=== PATIENT | female | born 1980 | race Caucasian/White ===

== ENCOUNTER 2018-04-11 17:53 | Emergency (ER) | payer BC, SELFPAY ==
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
[2018-04-11 18:05] VITALS: BP 137/80; PULSE 75; RESP 16; TEMP 37.2; O2SAT 100
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
== END 2018-04-11 19:20 | disposition home or self-care (01) ==
LOC: ER 19:25
PROVIDERS: Emergency Provider Emergency Medicine; PCP Nurse Practitioner Family
DX: S16.1XXA Strain of muscle, fascia and tendon at neck level, initial encounter (principal); V40.5XXA Car driver injured in collision with pedestrian or animal in traffic accident, initial encounter; V43.52XA Car driver injured in collision with other type car in traffic accident, initial encounter
CPT/HCPCS: 99283; 72040

== ENCOUNTER 2018-11-10 14:16 | Outpatient (CLI) | payer BC, SELFPAY ==
[2018-11-10 21:13] LABS: Calculated LDL 47 mg/dL; Cholesterol 141 mg/dL (50-200); HDL Cholesterol 89 mg/dL (40-60); Triglyceride 26 mg/dL (30-150)
== END 2018-11-10 14:36 ==
PROVIDERS: PCP Nurse Practitioner Family; Visit Provider Nurse Practitioner Family
DX: Z13.220 Encounter for screening for lipoid disorders (principal)
CPT/HCPCS: 36415; 80061; 83721

== ENCOUNTER 2019-06-22 15:44 | Outpatient (REF) | payer BC, SELFPAY ==
[2019-06-26 14:24] LABS: Chlamydia Result Negative (Negative); GC Result Negative (Negative)
== END 2019-06-22 16:04 ==
LOC: LBN 15:44
PROVIDERS: PCP Nurse Practitioner Family; Visit Provider Nurse Practitioner Adult Health
DX: N89.8 Other specified noninflammatory disorders of vagina (principal); Z11.3 Encounter for screening for infections with a predominantly sexual mode of transmission
CPT/HCPCS: 87491; 87591; 87480; 87510; 87660

== ENCOUNTER 2019-07-14 14:17 | Outpatient (CLI) | payer BC, SELFPAY ==
[2019-07-14 14:46] LABS: HCT 37.5 % (36.0-46.0); HGB 12.4 g/dL (12.0-15.5); Mean Corp. HGB Concentration 33.1 g/dL (32.0-36.0); Mean Corpuscular Hemoglobin 30.6 pg (27.0-33.0); Mean Corpuscular Volume 92.6 fL (80-95); Platelet Count 314 x1000/uL (130-400); RBC 4.05 m/cumm (4.00-5.20); RBC Distribution Width 12.5 % (11.7-14.6); White Blood Cell Count 4.81 k/cumm (4.4-10.8)
[2019-07-14 15:19] LABS: Iron 90 ug/dL (50-170); Total Iron Binding Capacity 318 ug/dL (250-450)
[2019-07-14 15:46] LABS: Folate 16.1 ng/mL (8.6-20.0); TSH (W/Ref FT4) 1.12 uIU/mL (0.36-3.74); Vitamin B12 296 pg/mL (193-986)
== END 2019-07-14 14:37 ==
PROVIDERS: PCP Nurse Practitioner Adult Health; Visit Provider Obstetrics & Gynecology
DX: R53.83 Other fatigue (principal)
CPT/HCPCS: 36415; 85027; 82607; 82746; 83540; 83550; 84443

== ENCOUNTER 2019-12-15 02:38 | Outpatient (CLI) | payer BC, SELFPAY ==
--- NOTE | 2019-12-15 06:45 | DI.US_ITS ---
EXAM: US PELVIS TRANSVAGINAL CLINICAL HISTORY: RLQ PAIN,OVARIAN PAIN,?MASS,CYST OR FIBROID,R10.31 TECHNIQUE: Transabdominal and transvaginal imaging was performed using standard protocol. COMPARISON: No exams were available for comparison FINDINGS: KIDNEYS: Kidneys are symmetric in size. No evidence of renal calculi. No evidence of hydronephrosis. No renal mass or cyst identified. UTERUS: Anteverted. 9.0 x 4.1 x 4.9 cm. Endometrium: 12 millimeters in thickness. Homogeneous. Myometrium: Unremarkable. No fibroids. Cervix: Unremarkable. OVARIES: Right: Cyst or mass: 2.6 centimeter cyst versus dominant follicle. Left: Cyst or mass: None. DOPPLER: Color: Symmetric and uniform flow to both ovaries. No hyperemia. Duplex: Normal ovarian arterial waveforms visualized. CUL-DE-SAC: Free fluid: None. IMPRESSION: 1. Normal-appearing uterus with endometrial stripe within normal limits. 2. 2.6 centimeter right ovarian cyst. DATA REPOSITORY:
== END 2019-12-15 02:58 ==
PROVIDERS: PCP Nurse Practitioner Adult Health; Visit Provider Nurse Practitioner Adult Health
DX: N83.201 Unspecified ovarian cyst, right side
CPT/HCPCS: 76830; 76856

== ENCOUNTER 2020-01-15 02:18 | Outpatient (CLI) | payer BC, SELFPAY ==
--- NOTE | 2020-01-15 06:45 | DI.US_ITS ---
EXAM: US PELVIS TRANSVAGINAL CLINICAL HISTORY: DYSFUNCTIONAL UTERINE BLEEDING, OVARIAN CYST, N83.209. TECHNIQUE: Transabdominal and transvaginal pelvic ultrasound was performed using standard protocol. COMPARISON: US US PELVIS TRANSVAGINAL from 12/15/2019 FINDINGS: KIDNEYS: Kidneys are symmetric in size. No evidence of renal calculi. No evidence of hydronephrosis. No renal mass or cyst identified. UTERUS: Position: Anteverted. Size: A 8.5 long by 4.2 AP by 4.1 transverse cm Endometrium: 1.1 cm. Normal for patient's menstrual status. Myometrium: Unremarkable. Cervix: Unremarkable. OVARIES: Right: 3.3 x 1.9 x 2.0 cm Cyst or mass: Small follicular cysts. Left: 2.3 x 1.3 x 1.3 cm Cyst or mass: Small follicular cysts. DOPPLER: Color: Symmetric and uniform flow to both ovaries. No hyperemia. Duplex: Normal ovarian arterial waveforms visualized. CUL-DE-SAC: Free fluid: None. Other: None. IMPRESSION: 1. Normal sonographic appearance of the kidneys. 2. Normal-appearing uterus with endometrial stripe within normal limits. 3. Unremarkable bilateral ovaries. DATA REPOSITORY:
== END 2020-01-15 02:38 ==
PROVIDERS: PCP Nurse Practitioner Adult Health; Visit Provider Obstetrics & Gynecology
DX: N83.02 Follicular cyst of left ovary (principal); N83.01 Follicular cyst of right ovary
CPT/HCPCS: 76830; 76856

== ENCOUNTER 2020-01-15 04:48 | Outpatient (CLI) | payer BC, SELFPAY ==
[2020-01-15 07:43] LABS: Abs Immature Grans 0.01 10^3/uL (0.0-0.06); Absolute Basophil Count 0.04 10^3/uL (0.0-0.2); Absolute Eosinophil Count 0.09 10^3/uL (0.0-0.7); Absolute Lymphocyte Count 1.39 10^3/uL (1.2-3.4); Absolute Monocyte Count 0.33 10^3/uL (0.1-0.8); Absolute Neutrophil Count 2.63 10^3/uL (1.2-6.7); Basophils % 0.9; HCT 39.1 % (36.0-46.0); HGB 12.9 g/dL (11.2-15.7); Immature Grans % 0.2; MCH 30.9 pg (27.0-33.0); MCV 93.5 fL (80-95); MPV 9.5 fL (8.0-11.0); Monocytes % 7.3; Neutrophils % 58.6; Nucleated RBC 0 %; Platelet Count 299 10^3/uL (130-400); RBC 4.18 10^6/uL (3.93-5.22); RDW 12.2 % (11.7-14.6); RDW-SD 42.1 fL; WBC 4.49 10^3/uL (4.4-10.8)
[2020-01-15 08:49] LABS: ALT 11 U/L (14-59); AST 15 U/L (15-37); Alkaline Phosphatase 50 U/L (46-116); Anion Gap 7.2 mmol/L (3-11); BUN 16 mg/dL (7-18); CO2 27.8 mmol/L (21.0-32.0); CREATININE 0.88 mg/dL (0.55-1.02); Calcium 8.8 mg/dL (8.5-10.1); Chloride 105 mmol/L (98-107); Glucose 93 mg/dL (74-106); Potassium 4.1 mmol/L (3.5-5.1); Sodium 140 mmol/L (136-145)
[2020-01-15 18:01] LABS: FSH 4.1 mIU/mL (See Note); LH 3.9 mIU/mL (See Note); Prolactin 14.3 ng/mL (See Table)
== END 2020-01-15 05:08 ==
PROVIDERS: PCP Nurse Practitioner Adult Health; Visit Provider Obstetrics & Gynecology
DX: N93.8 Other specified abnormal uterine and vaginal bleeding (principal)
CPT/HCPCS: 36415; 80053; 83001; 83002; 84146; 85025

== ENCOUNTER 2020-02-26 01:38 | Outpatient (CLI) | payer BC, SELFPAY ==
[2020-02-28 06:29] LABS: Patient Race White; SARS-CoV-2 RNA Undetected (Undetected); SARS-CoV-2 Specimen Source Nasopharynx
== END 2020-02-26 01:58 ==
PROVIDERS: PCP Nurse Practitioner Adult Health; Visit Provider Family Medicine
DX: Z11.59 Encounter for screening for other viral diseases (principal); Z71.84 Encounter for health counseling related to travel
CPT/HCPCS: U0003

== ENCOUNTER 2020-03-22 03:02 | Outpatient (CLI) | payer BC, SELFPAY ==
[2020-03-24 11:27] LABS: SARS-CoV-2 RNA Not Detected (NotDetected); SARS-CoV-2 RNA Source Nasal/Nares
== END 2020-03-22 03:22 ==
PROVIDERS: PCP Nurse Practitioner Adult Health; Visit Provider Surgery
DX: Z11.59 Encounter for screening for other viral diseases (principal); Z01.818 Encounter for other preprocedural examination
CPT/HCPCS: U0003

== ENCOUNTER 2020-03-26 10:14 | Day surgery (SDC) | payer BC, SELFPAY ==
[2020-03-26 10:20] VITALS: BP 112/68; PULSE 51; RESP 16; TEMP 36.6; O2SAT 100
[2020-03-26] MEDS: Lactated Ringers 1,000 ML 80 ML IV (10:50)
--- NOTE | 2020-03-26 12:47 | HPE_ITS ---
Date of service: 03/26/20 Time of Service: 12:48 Assessment and Plan Assessment and plan (1) Abdominal bloating: Status: Acute Assessment and plan: I advised EGD and colonoscopy The procedure was described including the risks of perforation with need for surgery, bleeding, cardiorespiratory issues. The patient agrees to proceed. (2) Change in bowel habits: Status: Acute History of Present Illness Narrative: Complains of digestive issues for 7 years, since she had her son. Seems to have trouble with sugar, yeast. Just started on Metformin by her sausage maker and notes some improvement.. If she eats the wrong thing, will have bloating and pain. She also feels sluggish. Worse over the last year. Pain in lower abdomen but most consistently in the RLQ. Worse the few days prior to her menses. Pelvic US was normal Labs unremarkable although consistent with PCOS Occasional blood in stool from hemorrhoids. No prior PUD. No prior EGD/colonoscopy . When habits are good, can have daily BM but constipation is worsening. Did not have to use laxatives. No heartburn or dysphagia. Did have a time when after eating felt pressure in epigastric region. Review of Systems All systems reviewed & are unremarkable except as noted in HPI and below PFSH Medical History Abdominal bloating Abnormal cervical Papanicolaou smear (07/25/13) 2004 OSMAR; 2005 LEV 1 2006 normal pap 2006, 2010, 2012 neg/neg, 2018 neg/neg DUB (dysfunctional uterine bleeding) Hemorrhoids HPV (human papilloma virus) infection Early Ovarian cyst Pelvic pain Polycystic ovarian syndrome Tobacco use disorder QUIT 05/2006 Surgical History Appendectomy (~1986) Family History Mother Essential hypertension Multiple sclerosis Father Hyperlipidemia Maternal Uncle Personal history of malignant neoplasm colon CA early 50's Grandmother Essential hypertension Social History Smoking/Tobacco Use Status: Former Tobacco Use Quit Date: 05/17/06 Smoking risk assessment performed?: Yes Alcohol Intake: current Alcohol Intake frequency: a few times a month Drug use: Never Substance use type: does not use Caregiver/Support person: No Household members: spouse and children Housing: house Number of Children: 1 Communication Needs: None Education Level: college Do you need help understanding health information?: Never 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 [employer] Pets and animals: No Sexually active: Yes Do you think of yourself as: straight/heterosexual Current gender identity: female Other: had a vasectomy What is your relationship status?: How often do you talk on the phone with friends or family?: three or more times per week How often do you get together with friends or relatives?: once per week How often do you attend lutheran or latter day services?: decline to answer Do you belong to any clubs or organized social groups?: decline to answer Panel score (0-1 are the most socially isolated patients): 2 What type of physical activity do you participate in: weight lifting, running and yoga Duration: 30-45 minutes/day Frequency: daily Special naz needs: No Seatbelt use: always Drive intox or ride w/intox pick up driver: No Water heater temp set <120 deg: Yes Working smoke detector in home: Yes Fire extinguisher in home: Yes Carbon monox detector in home: Yes Firearms in home: Yes Firearms unloaded and locked: Yes Do you feel safe at home: Yes Do you feel safe in your relationship?: Yes Female Reproductive History Menstrual control method: permanent sterilization Meds Home Medications and Allergies Home Medications Medication Instructions Recorded Confirmed Type Probiotic 1 ea PO DAILY cap.sprink 09/02/16 03/26/20 History magnesium oxide 400 mg PO BID 09/02/16 03/26/20 History albuterol sulfate [Proventil HFA] 1 - 2 puff INHALATION Q4H PRN #1 09/15/17 03/26/20 Rx inhaler cholecalciferol (vitamin D3) 25 1,000 unit PO DAILY 06/22/19 03/26/20 History mcg (1,000 unit) capsule acetylcysteine 600 mg capsule 600 mg PO BID cap 01/04/20 03/26/20 History metformin 500 mg tablet 500 mg PO BID #90 tab 01/18/20 03/26/20 Rx Allergies Allergy/AdvReac Type Severity Reaction Status Date / Time No Known Drug Allergies Allergy Verified 02/05/20 15:54 Exam Narrative Exam Narrative: Alert Lungs CTA Heart RRR Results Last Vital Signs Temp 97.9 F 03/26/20 10:20 Pulse 51 L 03/26/20 10:20 Resp 16 03/26/20 10:20 BP 112/68 03/26/20 10:20 Pulse Ox 100 03/26/20 10:20 COVID-19 Screening Have you,or household,traveled outside [place] in last 14 days?: No Had IN PERSON contact w/suspected or confirmed C-19 person: No
--- NOTE | 2020-03-26 12:55 | W.PM.DSUDISC ---
Discharge Plan Disposition Patient Disposition: HOME Condition: Good Discharge Details Reason For Visit: EGD, Colonoscopy Attending Provider: Dorys Abrams Primary Care Provider: Simona Peter Home Meds and New Rx's Prescriptions: New omeprazole 20 mg capsule,delayed release(DR/EC) 20 mg PO DAILY Qty: 60 RF: 0 Continued cholecalciferol (vitamin D3) 25 mcg (1,000 unit) capsule 1,000 unit PO DAILY RF: 0 acetylcysteine [NAC] 600 mg capsule 600 mg PO BID RF: 0 metformin [Glucophage] 500 mg tablet 500 mg PO BID Qty: 90 RF: 1 magnesium oxide 400 MG tablet 400 mg PO BID RF: 0 Probiotic 1 EACH capsule, sprinkle 1 ea PO DAILY RF: 0 albuterol sulfate [Proventil HFA] 6.7 GM HFA aerosol inhaler 1 - 2 puff Inhalation Q4H PRN Qty: 1 RF: 0 Discharge Instructions Additional Instructions: Findings: Your EGD showed two shallow ulcers. Routine biopsies were done. Take the antacid for two months. Avoid ibuprofen, aspirin, alcohol. The colonoscopy was normal. Please call if you develop: fevers >101.5 Nausea or Vomiting Abdominal pain that is not transient DAY SURGERY UNIT POST EGD/COLONOSCOPY INSTRUCTIONS 1. Because there will be medication in your system for the next 24 hours, you may feel a little sleepy. Your coordination will be affected. Therefore: a. Do not drive or operate dangerous equipment for 24 hours. b. Do not drink alcohol beverages for 24 hours (not even beer). c. Plan to go home and rest for the day. 2. Generally there are no restrictions on your activity after a day or so has gone by, but you may feel a bit fatigued for a few days. 3 After you arrive home you may have a light meal and return to a normal diet as you can tolerate it without feeling sick to your stomach. 4. After surgery, you may feel pain or discomfort. This should be only transient, but if it persists please contact your doctor. 5. If there are any questions regarding the findings of your procedure, please feel free to contact your doctor. 6. If you are unable to contact your doctor with a problem, contact the hospital at [phone]. 7. Continue all your regular medications unless directed otherwise. I understand the above instructions and have no questions. Signature of Patient or Responsible Adult Escort Date/Time Name of Responsible Adult Escort Signature of Nurse Date/Time Activity:: Activity as Tolerated Diet:: As Tolerated Discharge Orders Discharge Orders: Discharge Order (Routine); Ordered 03/26/20 Ordered By: Dorys Abrams DS: Diagnosis Discharge Diagnosis (1) Abdominal bloating: Status: Acute (2) Change in bowel habits: Status: Acute (3) Gastric ulcer: Status: Acute
--- NOTE | 2020-03-26 12:56 | W.COLOREPORT ---
Colonoscopy Report Date of procedure: 03/26/20 Pre-op diagnosis general: Abdominal pain, change in bowel habits Post-op diagnosis procedure note: other (Shallow gastric ulcers, normal colon) Procedure: EGD with biopsies Colonoscopy Surgeon: Dorys Abrams Anesthesia proc note operative: MAC Indications: This 39 year old woman complains of worsening constipation. She also has RLQ pain and occasional epigastric pain. Symptoms are also associated with bloating. Procedure Description: The patient was placed in the left lateral position and propofol titrated to sedation. The endoscope was advanced into the esophagus under direct visualization. The scope was passed through the stomach and into the duodenum. There was no duodenitis or ulceration noted. Biopsies were taken from the second portion of the duodenum to evaluate for celiac disease. The stomach showed two chronic shallow ulcers in the antrum. Biopsies taken from the periphery. The stomach was otherwise normal including on retroflexed view of the fundus and lesser curvature. The GE junction was inspected and showed no significant stricture, inflammation, masses or Barretts. The scope was slowly withdrawn with no other esophageal lesions found. Digital rectal examination revealed no abnormalities. The scope was advanced to the cecum without difficulty. The ileocecal valve and appendiceal orifice were clearly identified. The prep was good. The scope was slowly withdrawn over the course of greater than 6 minutes with no abnormalities seen in the ascending, transverse, descending, sigmoid colon or rectum including on retroflexed view. The colon was noted to be slightly tortuous. The patient tolerated the procedure well and was stable to recovery. Will treat with omeprazole for two months.
--- NOTE | 2020-03-26 13:15 | STOM_PTH ---
PATIENT: Letha Sandoval LOC: [facility] U#:[id number] AGE/SX: 39/F ROOM: RE03/26/[address]: Dorys Abrams MD : 1980 BED: DIS: 03/26/2020 SPEC #: [id number] RECD: 03/26/20 17:18 STATUS: [facility] REQ #: [id number] LORA: 03/26/20 13:[address]: Dorys Abrams DEPT: Surgical Specimen RECD BY: Keira Granda ENTERED: 03/26/20 17:18 SP TYPE: STOMACH OTHR DR: Simona Peter APRN Tissues: 1 - BIOPSY BOWEL 2 - STOMACH BIOPSY Procedures: GROSS AND MICRO LEVEL 4 Comments: [id number] ([id number] [facility] [place]
[2020-03-26 14:15] VITALS: BP 112/77; PULSE 58; RESP 16; TEMP 36.3; O2SAT 100
== END 2020-03-26 14:34 | disposition home or self-care (01) ==
PROVIDERS: PCP Nurse Practitioner Adult Health; Visit Provider Surgery
PROC: (CPT 43239; principal; 2020-03-26 11:45)
DX: R19.4 Change in bowel habit (principal); R14.0 Abdominal distension (gaseous); K25.9 Gastric ulcer, unspecified as acute or chronic, without hemorrhage or perforation; K31.89 Other diseases of stomach and duodenum
CPT/HCPCS: 43239; 45378; 81025; 88305; NC; J2704

== ENCOUNTER 2020-06-10 02:39 | Outpatient (CLI) | payer BC, SELFPAY ==
[2020-06-05] MEDS: Omnipaque 350 MG/ML 50 ML BTL IJ (08:12)
[2020-06-05] MEDS: Breeza Beverage 473 ML BTL PO ×2 (08:13)
[2020-06-05 08:34] LABS: Anion Gap 5.9 mmol/L (3-11); BUN 17 mg/dL (7-18); CO2 27.1 mmol/L (21.0-32.0); CREATININE 0.87 mg/dL (0.55-1.02); Calcium 8.9 mg/dL (8.5-10.1); Chloride 106 mmol/L (98-107); Glucose 92 mg/dL (74-106); Potassium 4.1 mmol/L (3.5-5.1); Sodium 139 mmol/L (136-145); TSH (W/Ref FT4) 1.72 uIU/mL (0.36-3.74)
[2020-06-05 08:35] LABS: C-Reactive Protein < 0.05 mg/dL (0.0-0.3)
[2020-06-05 08:38] LABS: Hemoglobin A1C 5.2 % (<5.7)
[2020-06-05] MEDS: Omnipaque 350 MG/ML 100 ML BTL IJ (09:33)
[2020-06-05] MEDS: Normal Saline - Diluent 50 ML VIAL IV (09:34)
--- NOTE | 2020-06-05 09:35 | DI.CT_ITS ---
EXAM: CT ABDOMEN PELVIS W CLINICAL HISTORY: RLQ/GROIN PAIN/hernias/s/p open,R10.30 TECHNIQUE: Imaging Protocol: Axial computed tomography images with coronal and sagittal reformatted images were created and reviewed CONTRAST MATERIAL: Intravenous: Omnipaque 350 Contrast volume:100 mL Oral: Yes COMPARISON: CT CHEST FOR PULMONARY EMBOLUS from 09/20/2017 FINDINGS: ABDOMEN: Lung Bases: Normal where visualized. Liver: Normal density. No measurable mass. Portal, Superior Mesenteric, and Splenic Veins: Unremarkable. Gallbladder and Biliary Tract: No radiodense calculus or dilation. Pancreas: Normal density, no abnormal calcifications or inflammatory process. Spleen: Normal. Adrenals: No masses seen. Kidneys: Normal size, contour and axis. No radiodense stones or obstructive uropathy. No masses seen. Abdominal Aorta: Abdominal portion non-dilated. Mild atherosclerosis. Bowel: No obstruction or bowel wall thickening. No evidence of appendicitis. There is a large amount of stool throughout the colon. Peritoneal Cavity: No ascites, collection or mesenteric inflammatory response. No free air. Lymph Nodes: Within normal limits. Bones: Unremarkable. Soft Tissues: Unremarkable. No evidence of an inguinal hernia. PELVIS: Bladder: Symmetric distention, no gross wall thickening. Reproductive Organs: Unremarkable as visualized. Lymph Nodes: Within normal limits. Bones: Within normal limits. IMPRESSION: 1. No evidence of an inguinal hernia. 2. No acute abdominal or pelvic process. 3. Large amount of stool throughout the colon. RADIATION DOSE DELIVERED: 586.23mGy.cm Total DLP DATA REPOSITORY: All CT scans at this facility are submitted to the National Radiology Data Registry (NRDR) Dose Index Registry (DIR) with the [employer] (ACR). RADIATION OPTIMIZATION: All CT scans at this facility use at least one of these dose optimization te chniques: automated exposure control; mA and/or kV adjustment per patient size (includes targeted exa ms where dose is matched to clinical indication); or iterative reconstruction.
--- NOTE | 2020-06-10 | DI.CT_ITS ---
EXAM: CT LUMBAR SPINE RECONS CLINICAL HISTORY: LUMBAR RECONSTRUCTIONS PER DR TO VIEW LUMBAR VERTEBRAE. TECHNIQUE: Imaging Protocol: Axial computed tomography images with coronal and sagittal reformatted images were created and reviewed. Images of the spine were reconstructed from the abdomen and pelvic CT. CONTRAST MATERIAL: Intravenous: Omnipaque 350 Contrast volume:100 cc Oral: / no COMPARISON: CT CHEST FOR PULMONARY EMBOLUS from 09/20/[address] ABDOMEN PELVIS W from 06/05/2020 FINDINGS: Bones: The last intervertebral disc space is designated the L5/S1 level for the numbering purpose of this examination. The vertebral body heights are well maintained. Alignment is satisfactory. No frac ture is seen. There is no spondylolysis or spondylolisthesis. T12-L1: No disc herniations or bulges are present. L1-2: No disc herniations or bulges are present. L2-3: No disc herniations or bulges are present. L3-4: No disc herniations or bulges are present. L4-5: No disc herniations or bulges are present. L5-S1: Mild narrowing of the disc space. Minimal endplate osteophytes. Mild disc bulging. No disc he rniation is visible. Mild bilateral neural foraminal narrowing is present. There is no central canal stenosis at any level.. Soft Tissues: The visualized SI joints and sacrum are will maintained. The paraspinal soft tissues a re unremarkable. IMPRESSION: Mild degenerative disc changes at L5-S1 with small endplate osteophytes causing mild bilateral neural foraminal encroachment. No disc herniation is visible. RADIATION DOSE DELIVERED: Total DLP DATA REPOSITORY: All CT scans at this facility are submitted to the National Radiology Data Registry (NRDR) Dose Index Registry (DIR) with the [employer] ([employer]). RADIATION OPTIMIZATION: All CT scans at this facility use at least one of these dose optimization te chniques: automated exposure control; mA and/or kV adjustment per patient size (includes targeted exa ms where dose is matched to clinical indication); or iterative reconstruction.
== END 2020-06-10 02:59 ==
PROVIDERS: PCP Nurse Practitioner Adult Health; Visit Provider Surgery
DX: R10.30 Lower abdominal pain, unspecified (principal); K58.9 Irritable bowel syndrome, unspecified
CPT/HCPCS: 80048; 74177; 83036; 84443; 86140; J3490; Q9967

== ENCOUNTER 2020-09-10 09:51 | Outpatient (CLI) | payer BC, SELFPAY ==
--- NOTE | 2020-09-10 11:39 | DI.RAD_ITS ---
EXAM: XR HAND RT COMPLETE CLINICAL HISTORY: right hand pain, M79.641. TECHNIQUE: 2D digital imaging was performed. COMPARISON: No exams were available for comparison FINDINGS: BONES: There is an oblique mildly displaced fracture involving the distal diaphysis of the 5th metaca rpal. The fracture does not extend into the MCP joint. No bony destructive lesion is seen. JOINTS: No dislocation present. SOFT TISSUE: Soft tissue swelling adjacent to the 5th metacarpal. IMPRESSION: Mildly displaced fracture involving the right 5th metacarpal. DATA REPOSITORY: RADIATION DOSE DELIVERED:
== END 2020-09-10 10:11 ==
PROVIDERS: PCP Nurse Practitioner Adult Health; Visit Provider Internal Medicine
DX: M79.641 Pain in right hand (principal); S62.316A Displaced fracture of base of fifth metacarpal bone, right hand, initial encounter for closed fracture
CPT/HCPCS: 73130

== ENCOUNTER 2023-03-11 18:20 | Outpatient (REF) | payer BC, SELFPAY ==
--- NOTE | 2023-03-11 16:30 | PAPFT_PTH ---
PATIENT: Letha Sandoval LOC: [facility] U#:[id number] AGE/SX: 42/F ROOM: RE03/11/[address]: Simona Peter APRN : 1980 BED: DIS: 03/11/2023 SPEC #: [id number] RECD: 03/11/23 18:24 STATUS: ELIZABETH REOmar #: [id number] LORA: 03/11/23 16:[address]: Simona Peter DEPT: [facility] Cytology RECD BY: Keira Granda Tissues: 1 - CX/ENDOCX FOR PAP SMEARS Procedures: PAP THIN PREP/UVM Screening HPV DNA PROBE Comments: [id number]
[2023-03-13 13:48] LABS: Chlamydia Result Negative (Negative); GC Result Negative (Negative)
== END 2023-03-11 18:21 | disposition home or self-care (01) ==
LOC: LBN 18:20
PROVIDERS: PCP Nurse Practitioner Adult Health; Visit Provider Nurse Practitioner Adult Health
DX: Z11.3 Encounter for screening for infections with a predominantly sexual mode of transmission (principal); Z12.4 Encounter for screening for malignant neoplasm of cervix; Z11.51 Encounter for screening for human papillomavirus (HPV)
CPT/HCPCS: 87491; 87591; 88142; 87480; 87510; 87624; 87660

== ENCOUNTER 2024-05-01 01:20 | Outpatient (CLI) | payer BC, SELFPAY ==
--- NOTE | 2024-05-01 10:28 | DI.RAD_ITS ---
Exam(s) XR LUMBAR SPINE COMPLETE EXAM: XR LUMBAR SPINE COMPLETE CLINICAL HISTORY: assess bony alignment,lumbar pain with radiation down both legs, m54.50,. TECHNIQUE: 2D digital imaging was performed of the lumbar spine. Five images were obtained. AP, la teral, right oblique, left oblique and L5-S1 spot views were obtained. COMPARISON: CT CT LUMBAR SPINE RECONS from 06/05/2020 FINDINGS: BONES: No fracture or destructive lesion. Vertebral bodies are unremarkable. No facet hypertrophy shani ntified. DISKS: Intervertebral disc spaces are maintained. ALIGNMENT: Lumbar spinal alignment is within normal limits. No spondylolysis or spondylolisthesis. SOFT TISSUE: Normal. IMPRESSION: Unremarkable radiographs of the lumbar spine. DATA REPOSITORY: RADIATION DOSE DELIVERED:
== END 2024-05-01 01:40 ==
LOC: DI 01:21
PROVIDERS: PCP Nurse Practitioner Adult Health; Visit Provider Nurse Practitioner Adult Health
DX: M54.50 Low back pain, unspecified (principal); M79.604 Pain in right leg; M79.605 Pain in left leg
CPT/HCPCS: 72110

== ENCOUNTER 2024-07-17 01:19 | Outpatient (CLI) | payer BC, SELFPAY ==
--- NOTE | 2024-07-17 07:00 | DI.RAD_ITS ---
Exam(s) XR HIP RT COMPLETE AP PELVIS EXAM: XR HIP RT COMPLETE AP PELVIS CLINICAL HISTORY: assess bones, alignmentlumbar ddd,radiculopathy,bilat hip pain,m51.369. TECHNIQUE: 2D digital imaging was performed. Two views COMPARISON: No exams were available for comparison FINDINGS: BONES: No acute fracture is present. No bony destructive lesion is seen. JOINTS: No dislocation present. The hip joint spaces are maintained. No significant degenerative c hanges. The SI joints and pubic symphysis are unremarkable. SOFT TISSUE: Normal. IMPRESSION: No acute abnormality. DATA REPOSITORY: RADIATION DOSE DELIVERED:
--- NOTE | 2024-07-17 11:20 | DI.MRI_ITS ---
Exam(s) MR LUMBAR SPINE WO EXAM: MR LUMBAR SPINE WO CLINICAL HISTORY: L5-S1 w sm endplate osteophytes neural michael encrm,lumbar ddd,radiculopathy. TECHNIQUE: Multiplanar multisequence MRI of the Lumbar spine was performed. COMPARISON: CT CT LUMBAR SPINE RECONS from 06/05/2020 CR XR LUMBAR SPINE COMPLETE from 05/01/2024 FINDINGS: Conus medullaris is at normal level. There is no evidence of conus mass nor subjacent clumping of in trathecal nerve roots to suggest arachnoiditis. The distal thecal sac appears unremarkable.There is no evidence of Tarlov intrasacral cysts nor other significant findings within the sacral canal Bones:There are no fractures nor ominous osseous lesions in the lumbar vertebral bodies and visualize d sacrum. No pars defects. With respect to the individual levels... T12-L1: Unremarkable L1-2: Normal disc height and signal. No disc herniation nor central canal stenosis.No foraminal steno sis L2-3: Normal disc height. No disc herniation nor central canal stenosis.No foraminal stenosis.No face t arthropathy. L3-4: Normal disc height. No disc herniation or central canal stenosis.No foraminal stenosis.No face t arthropathy. L4-5: Normal disc height and signal. No significant disc herniation nor central spinal canal stenosi s. No facet arthropathy. No foraminal stenosis. L5-S1: There is moderate disc space narrowing at this level and there are mild Modic type 2 sub endpl ate fatty marrow changes on the right side of this disc space. There is mild retrolisthesis of L5 up on S1. There is posterior annular bulging which contacts the anterior thecal sac. Central canal dim ensions are lower normal. Annular bulging extends into the floor of both exiting neural foraminae. There is mild-moderate right-sided foraminal stenosis at this level. Mild foraminal stenosis on the left side. The amount of disc space narrowing is slightly more prominent on the right than the left side at this level. Soft tissues: paraspinal soft tissues appear unremarkable. IMPRESSION: 1. Main findings here are at the L5-S1 level where there is moderate disc space narrowing, slightly m ore so on the right side than the left side of the disc space and there are Modic type 2 sub endplate fatty marrow changes on the far right side of this disc space. There is mild retrolisthesis L5 upon S1 with relatively symmetrical annular bulging extending into the floors of both exiting neural fora an. There is mild-moderate right-sided foraminal stenosis at this level. There is milder left-blessing ed foraminal stenosis at this level. 2. All of the other disc levels appear unremarkable 3. There is no significant facet arthropathy in the lumbar spine. DATA REPOSITORY:
== END 2024-07-17 01:39 ==
LOC: DI 01:19
PROVIDERS: PCP Nurse Practitioner Adult Health; Visit Provider Nurse Practitioner Adult Health
DX: M51.361 Other intervertebral disc degeneration, lumbar region with lower extremity pain only (principal); M25.551 Pain in right hip
CPT/HCPCS: 72148; 73502

== ENCOUNTER 2024-09-15 10:09 | Outpatient (CLI) | payer BC, SELFPAY ==
[2024-09-15 13:08] LABS: Abs Immature Grans 0.02 10^3/uL (0.0-0.06); Absolute Basophil Count 0.07 10^3/uL (0.0-0.2); Absolute Eosinophil Count 0.08 10^3/uL (0.0-0.7); Absolute Monocyte Count 0.42 10^3/uL (0.1-0.8); Absolute Neutrophil Count 4.77 10^3/uL (1.2-6.7); Eosinophils % 1.1 %; HCT 34.9 % (36.0-46.0); HGB 11.4 g/dL (11.2-15.7); Immature Grans % 0.3 %; Lymphocytes % 25.1 %; MCHC 32.7 % (32.0-36.0); MCV 89 fL (80-95); MPV 9.5 fL (8.0-11.0); Monocytes % 5.9 %; Neutrophils % 66.6 %; Platelet Count 373 10^3/uL (130-400); RBC 3.93 10^6/uL (3.93-5.22); RDW 13.4 % (11.7-14.6); RDW-SD 44.2 fL; WBC 7.16 10^3/uL (4.4-10.8)
[2024-09-15 14:26] LABS: Iron 57 ug/dL (50-170); Total Iron Binding Capacity 301 ug/dL (250-450); Transferrin Sat 19 % (15-50)
[2024-09-15 14:54] LABS: ALT 21 U/L (14-59); AST 19 U/L (15-37); Alkaline Phosphatase 44 U/L (46-116); Anion Gap 9.6 mmol/L (3-11); BUN 19 mg/dL (7-18); Bilirubin, Total 0.6 mg/dL (0.2-1.0); CO2 29.4 mmol/L (21.0-32.0); CREATININE 0.8 mg/dL (0.55-1.02); Calcium 9.3 mg/dL (8.5-10.1); Chloride 102 mmol/L (98-107); Estimated GFR 93.12 (mL/min/1.73m2); Ferritin 19 ng/mL (8-252); Glucose 83 mg/dL (74-106); Sodium 141 mmol/L (136-145); TSH (W/Ref FT4) 1.17 uIU/mL (0.36-3.74); Total Protein 7.4 g/dL (6.4-8.2); Vitamin B12 449 pg/mL (193-986)
[2024-09-15 14:55] LABS: Folate > 20.0 ng/mL (8.6-20.0)
[2024-09-18 11:37] LABS: Transferrin 236 mg/dL (201-352)
== END 2024-09-15 10:10 | disposition home or self-care (01) ==
PROVIDERS: PCP Nurse Practitioner Adult Health; Visit Provider Nurse Practitioner Adult Health
DX: N92.0 Excessive and frequent menstruation with regular cycle (principal)
CPT/HCPCS: 36415; 80053; 82607; 82728; 82746; 83540; 83550; 84443; 84466; 85025

== ENCOUNTER 2024-12-05 02:59 | Outpatient (CLI) | payer BC, SELFPAY ==
[2024-12-05 10:20] LABS: Abs Immature Grans 0.01 10^3/uL (0.0-0.06); HCT 36.8 % (36.0-46.0); HGB 12.1 g/dL (11.2-15.7); Immature Grans % 0.2 %; MCH 28.9 pg (27.0-33.0); MCHC 32.9 % (32.0-36.0); MCV 88 fL (80-95); MPV 9.4 fL (8.0-11.0); Platelet Count 356 10^3/uL (130-400); RBC 4.19 10^6/uL (3.93-5.22); RDW 13.7 % (11.7-14.6); RDW-SD 44.2 fL; WBC 4.50 10^3/uL (4.4-10.8)
== END 2024-12-05 03:00 | disposition home or self-care (01) ==
LOC: LBO 03:00
PROVIDERS: PCP Nurse Practitioner Adult Health; Visit Provider Obstetrics & Gynecology
DX: Z01.818 Encounter for other preprocedural examination (principal)
CPT/HCPCS: 36415; 86850; 86900; 86901; 85025

== ENCOUNTER 2024-12-06 06:16 | Day surgery (SDC) | payer BC, SELFPAY ==
[2024-12-06 06:37] VITALS: BP 109/70; PULSE 66; RESP 16; TEMP 36.7; O2SAT 100
--- NOTE | 2024-12-06 07:09 | W.ANESPRE ---
General Info Date of Service Date Performed: 12/06/24 Height: 5 ft 5 in Weight: 69.5 kg Body Mass Index (BMI): 25.4 Surgical Procedure: Operation Date: 12/06/24 07:40 Proposed Procedure Side Surgeon p Dilation & Curettage with Hysteroscopy, Dani Gupta, Actual Procedure Side Surgeon p Dilation & Curettage with Hysteroscopy, Dani Gupta, Pre-Op Diagnosis Post-Op Diagnosis Abnormal uterine bleeding Meds Allergies and Home Medications Allergies Allergy/AdvReac Type Severity Reaction Status Date / Time No Known Allergies Allergy Verified 12/06/24 06:51 Home Medication ?Medication ?Instructions ?Recorded magnesium oxide 400 mg (241.3 mg 400 mg PO BID 09/02/16 magnesium) tablet acetylcysteine 600 mg capsule (NAC) 600 mg PO BID 01/04/20 albuterol sulfate 90 mcg/actuation 1 - 2 puff inhalation Q4H PRN ##1 05/21/22 aerosol inhaler (Proventil HFA) metformin 500 mg tablet See Rx Instructions .Route 05/18/24 .COMPLEX #180 tabs celecoxib 200 mg capsule 200 mg PO BID Lower back pain 08/22/24 Current Visit Medications: Current Medications Generic Name Dose Route Start Last Admin Trade Name Freq PRN Reason Stop Dose Admin Ringer's Solution 1,000 mls @ 125 mls/hr 12/06/24 06:00 IV 12/06/24 23:59 INFUSION HIRA IV Miscellaneous Supplies 1 each 12/06/24 06:00 Iv Access IV 12/06/24 23:59 DIRECTED HIRA Sodium Chloride 0 ml 12/06/24 06:00 Normal Saline Flush 10 Ml Syr IV 12/06/24 23:59 PRN PRN Sodium Chloride 0 ml 12/06/24 06:00 Normal Saline 10 Ml Vial IJ 12/06/24 23:59 DIRECTED PRN Sterile Water 0 ml 12/06/24 06:00 Water,Injection,Sterile 10 Ml Vial IJ 12/06/24 23:59 DIRECTED PRN PFSH Active Problems Active Problems: Problem Status Onset Code Abnormal uterine bleeding Acute N93.9 Right ovarian cyst Acute ~10/2024 N83.201 Endometrial polyp Acute ~10/2024 N84.0 Menorrhagia Acute ~2024 N92.0 Lumbar degenerative disc disease Acute M51.369 Acute ~06/2023 Z63.4 Polycystic ovarian syndrome Chronic E28.2 Medical History Medical History IBS (irritable bowel syndrome) DUB (dysfunctional uterine bleeding) Sinusitis, acute Gastric ulcer (~2019) Fracture of fifth metacarpal bone of right hand Ovarian cyst Abnormal cervical Papanicolaou smear (07/25/13) 2005 SOMAR; 2005 LEV 1 2006 normal pap 2006, 2010, 2012 neg/neg, 2018 neg/neg Hemorrhoids Tobacco use disorder QUIT 05/2006 HPV (human papilloma virus) infection Early Surgical History Surgical History H/O hand surgery (~09/2020) s/p closed reduction and pinning of right fifth metacarpal fx Appendectomy (~1986) Tobacco Smoking/Tobacco Use Status: Former Tobacco Use Passive smoking exposure: No Alcohol Alcohol Intake: current Alcohol intake frequency: a few times a month Substance Use Substance use: Never Substance use type: does not use Vital Signs and Lab Results Vital Signs Most Recent Vital Signs in EMR: Most Recent Vital Signs Temp Pulse Resp BP Pulse Ox 36.7 C 66 16 109/70 100 12/06/24 06:37 12/06/24 06:37 12/06/24 06:37 12/06/24 06:37 12/06/24 06:37 Lab Results Blood Type / Crossmatch: Antibody Screen NEGATIVE 12/05/24 Complete Blood Count: WBC, (4.4-10.8) 4.50 10^3/uL 12/05/24, 10:05 RBC, (3.93-5.22) 4.19 10^6/uL 12/05/24, 10:05 Hgb, (11.2-15.7) 12.1 g/dL 12/05/24, 10:05 Hct, (36.0-46.0) 36.8 % 12/05/24, 10:05 Plt Count, (130-400) 356 10^3/uL 12/05/24, 10:05 Panel: Urine HCG, Qual Negative 12/05/24, 09:31 Anesthesia Assessment and Plan Anesthesia History Personal History: No History of Anesthesia Complications Family History: No Family History of Anesthesia Complications Exercise Tolerance Exercise Tolerance: Metabolic Equivalents>4 Cardiac & Pulmonary Exam Cardiac Exam: Normal S1/S2 Heart Sounds Pulmonary Exam: Clear Bilateral Breath Sounds Implantable Cardiac Device Does patient have a Pacemaker or an ICD?: No Airway Exam Known Difficult Airway: No Mallampati Class: 3 Mouth Opening: Normal (> 3cm) Thyromental Distance: Less than 3 cm Neck Range of Motion: Full ROM Neck Circumference: Normal Teeth Condition: Normal Dentition ASA Classification ASA Score: ASA 2 Emergency Case?: No NPO Status NPO Status: NPO Clears >2 hours, Solids >8 hours Status Status: Negative HCG Anesthesia Plan Resuscitation Status: Full Code Anesthesia Technique: General Anesthesia Airway Planned: Natural Airway Monitors Used: Standard Monitors Preoperative Comments:: 44 yo female for D/C. Sig PMHx: gastric ulcer (Denies issues with reflux. Ulcer found on EGD), LBP/disk dz (back is always sore, goes for injections next week), POS (metformin), former smoker, occ EtOh. Pft: normal Previous Anes: - EGD/colo, ketamine, prop, natural airway, no issues.
[2024-12-06] MEDS: Lactated Ringers 1,000 ML 125 ML IV (07:11)
[2024-12-06 07:14] VITALS: BMI 25.4
--- NOTE | 2024-12-06 10:35 | ENDO_PTH ---
PATIENT: Letha Sandoval LOC: [facility] U#:[id number] AGE/SX: 44/F ROOM: RE12/06/[address]: Nova Gupta DO : 1980 BED: DIS: 12/06/2024 SPEC #: [id number] RECD: 12/06/24 12:40 STATUS: ELIZABETH RE #: [id number] LORA: 12/06/24 10:[address]: Nova Gupta DEPT: Surgical Specimen RECD BY: Keira Granda ENTERED: 12/06/24 12:44 SP TYPE: Endo OTHR DR: Simona Peter APRN Tissues: 1 - ENDOCERVICAL BX/CURRETTE 2 - ENDOMETRIUM BX/CURRETTE 3 - ENDOMETRIUM BX/CURRETTE Procedures: GROSS AND MICRO LEVEL 4 Comments: [id number]
[2024-12-06] MEDS: Silver Nitrate Stick 1 EACH (10:42)
[2024-12-06 10:52] VITALS: BP 115/69; PULSE 43; RESP 14; TEMP 36.2; O2SAT 100
--- NOTE | 2024-12-06 10:55 | ROE_ITS ---
Operative Note Operative Note PRE-OP DIAGNOSIS: abnormal uterine bleeding, endometrial mass POST-OP DIAGNOSIS: same (With endometrial polyp) PROCEDURE: Hysteroscopy with dilation and curettage, MyoSure SURGEON: Nova Gupat ANESTHESIA TYPE: General:No Airway Refer to Anesthesia Record ESTIMATED BLOOD LOSS: 10 PATHOLOGY: other (1. Endometrial polyp 2. Endocervical curettage 3. Endometrial curettage) COMPLICATIONS: None Patient was transported to: same day Patient's condition: stable Indications: Heavy menstrual bleeding, suspect endometrial polyp Findings: Normal-appearing cervix and endometrial canal and cavity. 3 mm polypoid structure at the uterine fundus Procedure Description: After full informed consent was obtained, patient to the in the operating suite with an IV running. She was placed in the supine position and general anesthesia administered. She was then placed in the dorsal lithotomy position in yellowfin stirrups and prepped and draped in usual sterile fashion. Exam under anesthesia revealed a uterus that was midline and mobile. A timeout was held. No antibiotic prophylaxis was warranted. She had DVT prophylaxis with pneumatic compression stockings. At this point speculum was inserted into the vaginal vault. Cervical os identified. Single-tooth tenaculum used to grasp the anterior lip of the cervix for stabilization. The cervical canal was dilated to the point that a 4 mm hysteroscope could be passed without difficulty. With instillation of normal saline, hysteroscopic examination was performed. The canal of the cervix, and endometrium appeared smooth and regular. There is noted to be a 3 mm polypoid structure at the uterine fundus. The MyoSure device was used to remove the polyp. The base was hemostatic. At this point the hysteroscope portion was terminated. There was a 65 cc deficit of normal saline fluid Systematic curettage was performed first with endoce rvical curettage followed by endometrial curettage. The single-tooth tenaculum is then removed from the anterior lip of the cervix. The right puncture site was not hemostatic and chemically cauterized with silver nitrate to achieve hemostasis. The speculum was then removed. The patient returned to the dorsal supine position and awoke from anesthesia without difficulty. She was taken to the postanesthesia care unit in stable condition. Complications: None apparent Pathology: 1. Endometial polyp 2. Endocervical curettage 3. Endometrial curettage Fluids: Crystalloid per anesthesia Findings: As above EBL: 10 mL Date of Procedure: 12/06/24
--- NOTE | 2024-12-06 11:14 | W.ANESPOSTOP ---
Postoperative Evaluation Date, Time and Location Date Performed: 12/06/24 Time Performed: 11:14 Patient Location: Day Surgery Unit Vital Signs Most Recent Imported Vital Signs: Most Recent Vital Signs Temp Pulse Resp BP Pulse Ox 36.2 C L 43 L 14 115/69 100 12/06/24 10:52 12/06/24 10:52 12/06/24 10:52 12/06/24 10:52 12/06/24 10:52 Pain Score Most Recent Pain Score: Most Recent Pain Score Pain Level 0 12/06/24 10:52 Assessment Mental Status: Awake (Alert & Oriented to Patient Baseline) Airway and Respiratory Function: Patent airway with normal (patient baseline) respiratory exam Cardiovascular Function: Hemodynamically Stable Hydration Status: Adequately Hydrated Nausea & Vomiting: No Nausea or Vomiting Pain: Pain is tolerable per patient Peripheral Nerve Block: Patient did not receive a nerve block
[2024-12-06 11:32] VITALS: BP 112/73; PULSE 43; RESP 14; TEMP 36.3; O2SAT 100
== END 2024-12-06 11:57 | disposition home or self-care (01) ==
PROVIDERS: PCP Nurse Practitioner Adult Health; Visit Provider Obstetrics & Gynecology
PROC: 0UDB8ZZ Extraction of Endometrium, Via Natural or Artificial Opening Endoscopic (ICD-10-PCS; CPT 58558; principal; 2024-12-06 07:30)
DX: N93.9 Abnormal uterine and vaginal bleeding, unspecified (principal); N84.0 Polyp of corpus uteri; N92.0 Excessive and frequent menstruation with regular cycle
CPT/HCPCS: 58563; 88305; J0131; J1100; J1885; J2003; J2250; J2405; J2704; J3010

== ENCOUNTER 2025-03-19 10:11 | Outpatient (CLI) | payer BC, SELFPAY ==
[2025-03-19 10:29] LABS: Anion Gap 9.0 mmol/L (3-11); BUN 14 mg/dL (7-18); CO2 28.0 mmol/L (21.0-32.0); Calcium 9.0 mg/dL (8.5-10.1); Chloride 103 mmol/L (98-107); Cholesterol 172 mg/dL (<200); Glucose 88 mg/dL (74-106); HDL Cholesterol 95 mg/dL (>or=50); Potassium 4.1 mmol/L (3.5-5.1); Sodium 140 mmol/L (136-145)
[2025-03-19 19:43] LABS: HIV-1/2 Ag & Ab Screen Negative (Negative)
[2025-03-19 19:52] LABS: Hepatitis C Ab w Rflx HCV PCR Negative (Negative)
[2025-03-21 10:19] LABS: HSV Type 2 Ab, IgG Negative (Negative)
== END 2025-03-19 10:12 | disposition home or self-care (01) ==
LOC: LBO 10:12
PROVIDERS: PCP Nurse Practitioner Adult Health; Visit Provider Nurse Practitioner Adult Health
DX: Z13.1 Encounter for screening for diabetes mellitus (principal); Z13.220 Encounter for screening for lipoid disorders; Z11.4 Encounter for screening for human immunodeficiency virus [HIV]; Z11.59 Encounter for screening for other viral diseases; Z11.3 Encounter for screening for infections with a predominantly sexual mode of transmission
CPT/HCPCS: 36415; 80048; 80061; 83721; 86803; 87389; 86695; 86696

== ENCOUNTER 2025-03-19 19:23 | Outpatient (REF) | payer BC, SELFPAY ==
[2025-03-21 11:47] LABS: Chlamydia Result Negative (Negative); GC Result Negative (Negative)
== END 2025-03-19 19:24 | disposition home or self-care (01) ==
LOC: LBN 19:23
PROVIDERS: PCP Nurse Practitioner Adult Health; Visit Provider Nurse Practitioner Adult Health
DX: Z11.3 Encounter for screening for infections with a predominantly sexual mode of transmission (principal)
CPT/HCPCS: 87491; 87591; 87480; 87510; 87660

== ENCOUNTER → 2025-03-26 02:05 | Outpatient (CLI) | payer BC, SELFPAY ==
--- NOTE | 2025-03-26 08:38 | DI.MAMMO_ITS ---
Exam(s) MAMMO SCREENING EXAM: MAMMO SCREENING CLINICAL HISTORY: screening,Z12.39. TECHNIQUE: Bilateral full field digital CC and MLO mammographic images were obtained with 3D tomosynthesis and utilizing computer aided detection (CAD). COMPARISON: None. This is a baseline mammogram on a 44-year-old. FINDINGS: Fibroglandular tissue pattern is heterogeneously dense. There are no CAD designations. There are no new spiculated masses nor malignant appearing microcalcification groups. There is no significant architectural distortion nor skin thickening-retraction. IMPRESSION: No radiographic evidence of malignancy. BI-RADS Category 1 - Negative Breast Density - Category C - The breast are heterogeneously dense, which may obscure small masses. Breast density Category C or D implies that the patient has dense breast tissue. Dense breast tissue can make it harder to find cancer on a mammogram. Dense breast tissue is also associated with an increased risk of breast cancer. This information about the result of the mammogram report was provided to the patient to raise their awareness. Use this report when you speak with the patient about their risks for breast cancer, which includes their family history. At that time, you may recommend additional screening tests (Ultrasound or MRI) as these tests may add significant information. A negative radiographic report should not delay biopsy if a dominant or clinically suspicious mass is present. Up to ten percent of cancers are not identified on mammography. A negative report may reinforce clinical impression. Adenosis and dense breasts may obscure an underlying neoplasm. False positive reports average 6 to 10%. Patient will receive a letter notifying them of these results.
== END ==
LOC: DI 02:05
PROVIDERS: PCP Nurse Practitioner Adult Health; Visit Provider Nurse Practitioner Adult Health
DX: Z12.31 Encounter for screening mammogram for malignant neoplasm of breast (principal); R92.323 Mammographic fibroglandular density, bilateral breasts; R92.333 Mammographic heterogeneous density, bilateral breasts
CPT/HCPCS: 77063; 77067